=== PATIENT | female | born 1980 | race Caucasian/White ===

== ENCOUNTER → 2019-03-12 | Outpatient (REF) | payer OTHER | LOC: M LAB LCGH 13:22 | PROVIDERS: ATTEND Obstetrics & Gynecology Obstetrics | DX: Z86.32 Personal history of gestational diabetes (principal) ==

== ENCOUNTER → 2022-11-29 | Outpatient (REF) | payer OTHER ==
[~2022-11-29] MED LIST: ACET1TAB55 PO; IBUP-1022 PO; PRENCHW PO
== END ==
LOC: M LAB REF 12:42
PROVIDERS: ATTEND Ophthalmology
DX: H02.826 Cysts of left eye, unspecified eyelid (principal)